=== PATIENT | female | born 1950 | race Two or more races ===

== ENCOUNTER 2024-04-28 09:34 | Inpatient (IN) | payer OTHER ==
[~2024-04-28] VITALS: Ht 154.9 cm; Wt 39.4 kg
[2024-04-28 09:46] VITALS: PULSE 102; RESP 34; O2SAT 100
[2024-04-28] MEDS: MethylPREDNISolone SOD SUCC 125 MG/2 ML VIAL IVP ONE (09:48)
[2024-04-28] MEDS ORDERED: 0.9% SODIUM CHLORIDE 15 ML NEB SOLUTION NEB ONE (09:48)
[2024-04-28 09:51] VITALS: PULSE 118; RESP 25; O2SAT 100
[2024-04-28] MEDS: IPRATROPIUM BROMIDE 0.5 MG/2.5 ML NEB SOLUTION NEB ONE (09:51)
[2024-04-28] MEDS: ALBUTEROL SULFATE 2.5 MG/0.5 ML 5 ML NEB SOLUTION NEB ONE (09:51)
[2024-04-28] MEDS: MAGNESIUM SULFATE 2 GM in DEXTROSE 5%-WATER 100 ML IV ONE (09:56)
[2024-04-28 09:59] LABS: COVID AG,FIA SOURCE NASAL SWAB
[2024-04-28 10:03] LABS: BASOPHILS % (AUTO) 0.7 % (0.0-2.0); EOSINOPHILS % (AUTO) 3.9 % (1.0-6.0); HEMATOCRIT 33.6 % (36-46); HEMOGLOBIN 10.4 g/dL (12.0-16.0); LYMPHOCYTES # (AUTO) 4.1 K/uL (1.0-4.8); LYMPHOCYTES % (AUTO) 51.2 % (22.0-44.0); MEAN CORPUSCULAR HEMOGLOBIN 25.5 pg (26.0-34.0); MEAN CORPUSCULAR HGB CONC 31.1 G/dL (31.0-37.0); MEAN CORPUSCULAR VOLUME 82 fL (80-100); MONOCYTES # (AUTO) 0.4 K/uL (0.1-1.0); MONOCYTES % (AUTO) 4.8 % (2.0-9.0); NEUTROPHILS # (AUTO) 3.1 K/uL (1.8-7.7); NEUTROPHILS % (AUTO) 39.4 % (40.0-70.0); PLATELET COUNT (AUTO) 343 K/uL (150-450); RED BLOOD CELL COUNT(AUTO) 4.09 MIL/uL (4.00-5.20); RED CELL DISTRIBUTION WIDTH 16.7 % (11.5-14.5)
[2024-04-28 10:12] LABS: ANION GAP 9 mmol/L (8-16); CALCIUM, TOTAL 8.2 mg/dL (8.8-10.5); CARBON DIOXIDE 29 mmol/L (22-29); CHLORIDE 102 mmol/L (98-107); GLOMERULAR FILTR. RATE CALC > 60 mL/min (>60); GLUCOSE,RANDOM 216 mg/dL (70-110); POTASSIUM 3.4 mmol/L (3.5-5.1); SODIUM SERUM 140 mmol/L (136-145); UREA NITROGEN, BLOOD 9 mg/dL (7-18)
[2024-04-28 10:19] LABS: INFLUENZA TYPE A NEGATIVE FOR TYPE A (NEGATIVE); INFLUENZA TYPE B NEGATIVE FOR TYPE B (NEGATIVE); SARS-COV2 (COVID) ANTIGEN,FIA Negative (Negative)
[2024-04-28] MEDS: SODIUM CHLORIDE 0.9% 1,000 ML IV ONE (10:20)
[2024-04-28 10:21] LABS: B-TYPE NATRIURETIC PEPTIDE 225 pg/mL (0-100); TROPONIN I-HIGH SENSITIVITY 17 ng/L (<51)
[2024-04-28 10:45] VITALS: PULSE 97; RESP 28; O2SAT 95
[2024-04-28 10:59] LABS: ABG CARBOXYHEMOGLOBIN 1.4 % (0.5-1.5); ABG HCO3 21.9 mmol/L (21.0-28.0); ABG OXYGEN CONTENT 13.8 mL/dL (15.0-23.0); ABG OXYGEN SATURATION 99.6 % (94.0-98.0); ABG OXYHEMOGLOBIN 97.2 % (94.0-98.0); ABG PCO2 49 mmHg (32.0-45.0); ABG PH 7.298 (7.350-7.450); ABG TOTAL HEMOGLOBIN 9.8 G/dL (12.0-16.0); PO2, ARTERIAL BG 167.6 mmHg (83.0-108.0); SOURCE, BLOOD GAS ARTERIAL; TEMPERATURE, FAHRENHEIT, BG 97.9 FAHREN (96.0-98.6)
[2024-04-28 11:00] LABS: ALLEN TEST, BLOOD GAS Positive; O2 DEVICE,BLOOD GAS BIPAP (ROOM AIR); SITE, BLOOD GAS RT RADIAL
[2024-04-28 11:01] LABS: SPONTANEOUS VT, BG 780 ml
[2024-04-28] MEDS: LEVOFLOXACIN 500 MG/D5% WATER 100 ML IV ONE (11:11)
[2024-04-28 13:00] VITALS: PULSE 77; RESP 17; O2SAT 99
[2024-04-28] MEDS ORDERED: ACETAMINOPHEN 325 MG TABLET PO PRN (13:45)
[2024-04-28] MEDS ORDERED: POTASSIUM CHL 10 MEQ/WATER 50 ML IV PRN (13:45)
[2024-04-28] MEDS ORDERED: DEXTROSE 50%-WATER 25 GM/50 ML SYRINGE IVP PRN (13:45)
[2024-04-28] MEDS: *CLINICAL-LEVOFLOXACIN IVPB DOSING CLINICAL ONE (13:55)
[2024-04-28 14:40] LABS: APPEARANCE,URINE CLEAR (CLEAR); BILIRUBIN,URINE NEGATIVE (NEGATIVE); COLOR,URINE COLORLESS (YELLOW); GLUCOSE, URINE (UA) >=1000 mg/dL (NEGATIVE); KETONES,URINE NEGATIVE (NEGATIVE); LEUKOCYTE ESTERASE ,URINE NEGATIVE (NEGATIVE); NITRATE,URINE NEGATIVE (NEGATIVE); OCCULT BLOOD,URINE NEGATIVE (NEGATIVE); PH,URINE 6.5 (5.0-8.0); PROTEIN,URINE 30-70 mg/dL (NEGATIVE); SPECIFIC GRAVITIY, URINE 1.007 (1.003-1.030); UROBILINOGEN,URINE <=1.0 mg/dL (<=1.0)
[2024-04-28 14:57] LABS: RBC,URINE None Seen /HPF (0-2); WBC,URINE 0-2 /HPF (0-5)
[2024-04-28 14:58] LABS: BACTERIA,URINE Rare /HPF (None Seen)
[2024-04-28 15:34] VITALS: BP 138/74; PULSE 77; RESP 17; TEMP 97.6; O2SAT 99
[2024-04-28] MEDS: POTASSIUM CHLORIDE 20 MEQ ER TABLET PO PRN (15:48)
[2024-04-28] MEDS: HEPARIN SODIUM,PORCINE 5,000 UNITS/ML VIAL SQ SCH (16:00)
[2024-04-28] MEDS: MethylPREDNISolone SOD SUCC 125 MG/2 ML VIAL IVP SCH (17:21)
[2024-04-28 20:00] VITALS: BP 142/61; PULSE 89; RESP 18; TEMP 97.9; O2SAT 97
[2024-04-28] MEDS: DOCUSATE SODIUM 100 MG CAPSULE PO SCH (21:00)
[2024-04-28 23:11] LABS: GLUCOMETER DEV NAME(LOC) 5N.1D; GLUCOSE,POINT OF CARE 169 MG/DL (70-110)
[2024-04-29] VITALS (8 sets, daily range): BP systolic 117–156; BP diastolic 47–67; PULSE 76–96; RESP 17–20; TEMP 98–98.6; O2SAT 94–98
[2024-04-29 06:36] LABS: GLUCOMETER DEV NAME(LOC) 5N.1D; GLUCOSE,POINT OF CARE 162 MG/DL (70-110)
[2024-04-29] MEDS: FAMOTIDINE 20 MG TABLET PO SCH (08:03)
[2024-04-29] MEDS ORDERED: 0.9% SODIUM CHLORIDE 5 ML NEB SOLUTION NEB ONE (08:20)
[2024-04-29] MEDS: ALBUTEROL SULFATE 2.5 MG/0.5 ML NEB SOLUTION NEB PRN (08:23)
[2024-04-29] MEDS: HYDROCODONE/ACETAMINOPHEN 5-325 MG TABLET PO PRN (11:24)
[2024-04-29] MEDS ORDERED: SODIUM CHLORIDE 0.9% 500 ML IV ONE (11:24)
[2024-04-29] MEDS: LEVOFLOXACIN 750 MG/D5% WATER 150 ML IV SCH (11:31)
[2024-04-29 12:01] LABS: GLUCOMETER DEV NAME(LOC) 5N.1D; GLUCOSE,POINT OF CARE 149 MG/DL (70-110)
[2024-04-29] MEDS: INSULIN LISPRO 100 UNITS/ML SQ PRN (17:58)
[2024-04-30 19:11] LABS: GLUCOMETER DEV NAME(LOC) 5N.1D; GLUCOSE,POINT OF CARE 180 MG/DL (70-110)
== END 2024-04-29 21:00 | disposition short-term general hospital (02) | DRG 189 ==
LOC: EMS 09:35 → EDH 14:11 → 5N 15:05
PROVIDERS: ADMIT Internal Medicine; ATTEND Internal Medicine
PROC: 5A09357 Assistance with Respiratory Ventilation, Less than 24 Consecutive Hours, Continuous Positive Airway Pressure (ICD-10-PCS; principal; 2024-04-28)
DX: J96.01 Acute respiratory failure with hypoxia (principal); J18.9 Pneumonia, unspecified organism; J44.1 Chronic obstructive pulmonary disease with (acute) exacerbation; R64 Cachexia; R65.10 Systemic inflammatory response syndrome (SIRS) of non-infectious origin without acute organ dysfunction; J44.0 Chronic obstructive pulmonary disease with (acute) lower respiratory infection; Z68.1 Body mass index [BMI] 19.9 or less, adult; F17.200 Nicotine dependence, unspecified, uncomplicated; J96.02 Acute respiratory failure with hypercapnia; F17.210 Nicotine dependence, cigarettes, uncomplicated; Z79.899 Other long term (current) drug therapy
CPT/HCPCS: 71045; 80048; 81001; 82805; 82962; 83880; 84484; 85025; 87804; 93005; 94640; 94644; 94660; 99291; J1644; J1956; J2919; J3475; J7040; J7060; 36415-L1; 36415-TC; J7613